=== PATIENT | female | born 2000 | race Caucasian/White ===

== ENCOUNTER 2018-01-03 15:13 | Emergency (ER) | payer BC, OTHER ==
[2018-01-03 15:31] VITALS: BP 127/77
--- NOTE | 2018-01-03 15:47 | UC ---
Skin Complaint HPI - HPI Summary HPI Summary: 17 yo female has a cartilage piercing of her right ear for 6 mos today noted slight redness no pain no d/c no hx MRSA - History of Current Complaint Chief Complaint: UCSkin Stated Complaint: EAR PIERCING ISSUE Hx Obtained From: Patient Hx Last Menstrual Period: 12/07/17 Onset/Duration: Gradual Onset, Lasting Hours Skin Exposure Onset/Duration: Minutes Ago Timing: Constant Onset Severity: Mild Pain Intensity: 0 Pain Scale Used: 0-10 Numeric Location: Ear (Right) Character: Redness Aggravating Factor(s): Nothing Alleviating Factor(s): Nothing - Allergy/Home Medications Allergies/Adverse Reactions: Allergies Allergy/AdvReac Type Severity Reaction Status Date / Time No Known Allergies Allergy Verified 01/03/18 15:31 Home Medications: Home Medications NK [No Home Medications Reported] 01/03/18 [History Confirmed 01/03/18] Review of Systems Constitutional: Negative Skin: Negative Eyes: Negative ENT: Negative Respiratory: Negative Cardiovascular: Negative Gastrointestinal: Negative Genitourinary: Negative Motor: Negative Neurovascular: Negative Musculoskeletal: Negative Neurological: Negative Psychological: Negative Is Patient Immunocompromised?: No All Other Systems Reviewed And Are Negative: Yes PMH/Surg Hx/FS Hx/Imm Hx Previously Healthy: Yes - Surgical History Surgical History: Yes Surgery Procedure, Year, and Place: Tonsils removed - Family History Known Family History: Positive: Hypertension Negative: Cardiac Disease, Diabetes - Social History Alcohol Use: None Substance Use Type: None Smoking Status (MU): Never Smoked Tobacco Physical Exam Triage Information Reviewed: Yes Appearance: Well-Appearing, No Pain Distress, Well-Nourished Vital Signs: Initial Vital Signs Temp 98.2 F 01/03/18 15:26 Pulse 96 01/03/18 15:26 Resp 18 01/03/18 15:26 BP 127/77 01/03/18 15:26 Pulse Ox 100 01/03/18 15:26 Vital Signs Reviewed: Yes Eyes: Positive: Conjunctiva Clear ENT: Positive: Hearing grossly normal, TMs normal, Other - see image. Negative : Pharyngeal erythema, Nasal congestion, Nasal drainage, Trismus, Muffled voice , Hoarse voice Dental Exam: Normal Neck: Positive: Supple, Nontender Respiratory: Positive: Lungs clear, Normal breath sounds, No respiratory distress Cardiovascular: Positive: RRR, No Murmur Neurological: Positive: Alert Psychological Exam: Normal Skin: Negative: rashes, breakdown Course/Dx - Diagnoses Provider Diagnoses: right ear redness at piercing site, minimal redness and not tender. ? irritation vs infection Discharge - Sign-Out/Discharge Documenting (check all that apply): Discharge/Admit/Transfer - Discharge Plan Condition: Stable Disposition: HOME Referrals: No Primary Care Phys,NOPCP [Primary Care Provider] - Additional Instructions: warm compresses a culture is pending recheck for worsening symptoms don't reinsert earring for now redness may be due to inflammation as opposed to infection we will hold of on antibiotics at this point - Billing Disposition and Condition Condition: STABLE Disposition: Home Images Head: 1 - piercing here/stud removed/one drop of serous d/c, sent for culture
== END 2018-01-03 16:12 | disposition home or self-care (01) ==
LOC: UCCORT 15:13
DX: H93.8X1 Other specified disorders of right ear (principal)
CPT/HCPCS: 87070; 87205; 87640; 87641; 99201; G0463